=== PATIENT | male | born 1965 | race Caucasian/White ===

== ENCOUNTER 2020-08-15 01:57 | Emergency (ER) | payer OTHER ==
[~2020-08-15] VITALS: Ht 175.3 cm; Wt 114.8 kg
[2020-08-15] MEDS ORDERED: LIPITOR 20 MG T20 M1 PO (02:13)
[2020-08-15] MEDS ORDERED: LISINOPRIL10 MG PO (02:14)
[2020-08-15] MEDS ORDERED: METFORMIN HCL500 M3 PO (02:14)
[2020-08-15 03:12] VITALS: BP 146/80
== END 2020-08-15 03:13 | disposition home or self-care (01) ==
LOC: M.ERS 01:57
DX: S01.01XA Laceration without foreign body of scalp, initial encounter (principal); R55 Syncope and collapse; I10 Essential (primary) hypertension; E11.9 Type 2 diabetes mellitus without complications; E78.5 Hyperlipidemia, unspecified; Z79.899 Other long term (current) drug therapy; W19.XXXA Unspecified fall, initial encounter; Y93.89 Activity, other specified; Y92.89 Other specified places as the place of occurrence of the external cause; Y99.8 Other external cause status